=== PATIENT | female | born 1955 | race Hispanic/Latino ===

== ENCOUNTER 2017-03-14 13:51 | Outpatient (CLI) | payer OTHER ==
--- NOTE | 2017-03-14 14:44 | Mammography Report ---
BILATERAL DIGITAL DIAGNOSTIC MAMMOGRAM WITH CAD : 03/14/17 13:51:00 CLINICAL: History of right breast cancer and status post right partial mastectomy and radiation therapy in 2016. COMPARISON:04/04/16 FINDINGS: The breasts are heterogeneously dense, which may obscure small masses. The right breast is slightly smaller than the left. Mild right periareolar skin thickening and minimal postsurgical scar. No mass, architectural distortion or suspicious calcifications. The left breast is negative. IMPRESSION: No mammographic evidence of malignancy. Benign postsurgical and post radiation changes in the right breast. BI-RADS CATEGORY: 2 -- Benign RECOMMENDATION: Routine mammographic screening in one year. COMMENT: Patient follow-up letters are generated via our [employer] application.
== END 2017-03-14 13:52 | disposition home or self-care (01) ==
LOC: SPVWC 13:51
PROVIDERS: ATTEND Surgery
DX: C50.211 Malignant neoplasm of upper-inner quadrant of right female breast (principal); Z90.11 Acquired absence of right breast and nipple
CPT/HCPCS: 77066; G0204

== ENCOUNTER 2019-09-24 13:49 | Outpatient (CLI) | payer MEDICARE, OTHER ==
--- NOTE | 2019-09-24 14:59 | Mammography Report ---
DIGITAL DIAGNOSTIC MAMMOGRAM WITH CAD, -- 09/24/2019 INDICATION: History of right breast cancer status post right partial mastectomy and radiation therapy . TECHNIQUE: Digital bilateral mammographic imaging was performed. This examination was interpreted with the benefit of Computer-aided Detection analysis. COMPARISON: 03/14/2017 and 04/04/2016 FINDINGS: Breast Density: The breasts are heterogeneously dense, which may obscure small masses. There is no evidence of dominant mass, suspicious calcifications or architectural distortion in eithe r breast. Minimal right postsurgical scar. IMPRESSION: No mammographic evidence of malignancy. Follow up recommendation: Routine yearly BI-RADS Category 2: Benign. A "normal" or negative report should not discourage follow up or biopsy of a clinically significant f inding. A written summary of these findings will be mailed to the patient. The patient will be entered into a mammography reporting system which will generate a reminder letter for the patient's next appointmen t at the appropriate interval. According to the [employer], yearly mammograms are recommended starting at age 40 and continuing as long as a woman is in good health. Breast MRI is recommended for women with an ada roximately 20-25% or greater lifetime risk of breast cancer, including women with a strong family his tory of breast or ovarian cancer and women who have been treated for Hodgkin's disease. Signer Name: Darryl Cummings MD Signed: 09/24/2019 2:54 PM Workstation Name: [id number]
== END 2019-09-24 13:50 | disposition home or self-care (01) ==
LOC: SPVWC 13:49
PROVIDERS: ATTEND Surgery
DX: R92.8 Other abnormal and inconclusive findings on diagnostic imaging of breast (principal); Z85.3 Personal history of malignant neoplasm of breast
CPT/HCPCS: 77066

== ENCOUNTER 2021-01-08 12:37 | Outpatient (CLI) | payer MEDICARE, OTHER | END 2021-01-08 12:38 | disposition home or self-care (01) | LOC: SPVWC 12:37 | PROVIDERS: ATTEND Surgery | DX: Z12.31 Encounter for screening mammogram for malignant neoplasm of breast (principal) | CPT/HCPCS: 77067 ==